=== PATIENT | male | born 2000 | race Caucasian/White ===

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

== ENCOUNTER 2021-09-06 07:00 | Emergency (ER) | payer BC ==
[2021-09-06 08:20] LABS: ACETAMINOPHEN <2.0 ug/mL
[2021-09-06 08:28] LABS: CARBON DIOXIDE,CO2 29.4 mmol/L (21.0-32.0); POTASSIUM,K 4.5 mmol/L (3.5-5.1)
[2021-09-06 10:55] VITALS: BP 119/66; PULSE 68
== END 2021-09-06 10:58 | disposition home or self-care (01) ==
LOC: MW.ED 07:00
DX: F32.A Depression, unspecified (principal); Z20.822 Contact with and (suspected) exposure to COVID-19
CPT/HCPCS: 36415; 80053; 80143; 80179; 80305-QW; 80307; 84443; 85025; 93005; 93010; 99284; U0002